=== PATIENT | female | born 1960 | race Caucasian/White ===

== ENCOUNTER → 2019-10-10 17:45 | Outpatient (CLI) | payer BC, SELFPAY ==
--- NOTE | ~2019-10-10 | MM_ITS ---
EXAMINATION: MM screening [facility] BI w stephan HISTORY: Screening mammogram TECHNIQUE: Craniocaudal and mediolateral oblique 3-D tomosynthesis images were obtained and synthetic 2-D images were generated. CAD analysis was submitted and interpreted. COMPARISON: 07/26/2018, 04/25/2017, 02/07/2016 bilateral digital screening mammogram examinations BREAST PARENCHYMAL COMPOSITION: There are scattered areas of fibroglandular density. FINDINGS: There are right breast mammographic asymmetries including: There is a new approximately 8.4 mm partially circumscribed opacity in the posterior outer right [address]. Possible new 5 mm opacity in the outer right breast at mid depth on craniocaudal projection; this is likely composite shadowing based upon the appearance on craniocaudal Tomosynthesis images.. There is a circumscribed 5 mm opacity at mid depth in the outer left breast (craniocaudal Tomosynthes is image 24/70) Otherwise there is no evidence of suspicious mass, calcification, or architectural distortion to sugg est malignancy in either breast. There has been no suspicious interval change. IMPRESSION: 1. Bilateral mammographic masses 2. Diagnostic bilateral mammogram and breast ultrasound examination are recommended. BI-RADS Category 0: Incomplete: Needs additional imaging evaluation. Reviewed, dictated and finalized at location A. SORTER IMPRESSION: 1. Bilateral mammographic masses 2. Diagnostic bilateral mammogram and breast ultrasound examination are recomme nded. BI-RADS Category 0: Incomplete: Needs additional imaging evaluation.
== END ==
PROVIDERS: PCP Family Medicine; Visit Provider Obstetrics & Gynecology Gynecology
DX: Z12.31 Encounter for screening mammogram for malignant neoplasm of breast (principal); R92.8 Other abnormal and inconclusive findings on diagnostic imaging of breast
CPT/HCPCS: 77063; 77067

== ENCOUNTER 2019-10-18 20:10 | Emergency (ER) | payer BC, SELFPAY ==
--- NOTE | ~2019-10-18 | XR_ITS ---
EXAMINATION: XR chest 2V 10/18/2019 20:47 INDICATION: Midsternal chest pain. History of lung cancer. PROCEDURE: PA and lateral views of the chest COMPARISON: Comparison to multiple prior studies sequentially, with oldest reviewed study dated 12/17. FINDINGS: The lungs are clear. There is evidence for chronic granulomatous disease. Chronic elevation of the right diaphragm. Mild dextroscoliosis of the thoracic spine. The cardiomediastinal silhouette is within normal limits. There are no pleural effusions. There is no pneumothorax suspected. IMPRESSION: 1: NO ACUTE CARDIOPULMONARY DISEASE. Reviewed, dictated and finalized at location A. OLATE MOLDER
[2019-10-18 20:19] VITALS: BP 147/56; PULSE 72; RESP 16; TEMP 36.5; O2SAT 100
--- NOTE | 2019-10-18 20:22 | ECG_ITS ---
Measurements Intervals [place] Rate: 69 P: 47 WY: 161 QRS: 4 QRSD: 88 T: 12 QT: 386 QTc: 414 Interpretive Statements SINUS RHYTHM DELAYED PRECORDIAL R/S TRANSITION BORDERLINE T WAVE ABNORMALITY- INFERIOR LEADS BASELINE ARTIFACT- I, II, AVR BORDERLINE ECG Electronically Signed On 10-19-2019 7:06:00 MEDICAL CASE MANAGER by Derek Frost D.O.
[2019-10-18 20:37] LABS: Basophils Absolute Auto 0.1 K/mm3 (0.0-0.1); Basophils Percent Auto 0.6 % (0.2-1.2); Eosinophils Absolute Auto 0.1 K/mm3 (0-0.3); Eosinophils Percent Auto 1.1 % (0-4.4); Hematocrit 45.3 % (37.0-47.0); Hemoglobin 14.3 g/dL (12.0-15.0); Immature Granulocyte Absolute 0.03 K/mm3 (0.00-0.031); Immature Granulocyte Percent A 0.4 % (0-0.5); Lymphocytes Absolute Auto 3.25 K/mm3 (0.9-3.2); Lymphocytes Percent Auto 39.7 % (18.3-44.2); Mean Corpuscular HGB Conc 31.6 g/dl (32-36); Mean Corpuscular Volume 91.9 fl (80-100); Mean Platelet Volume 10.6 fl (7.4-10.4); Monocytes Absolute Auto 0.6 K/mm3 (0.1-0.6); Monocytes Percent Auto 7.5 % (2.6-8.5); Neutrophils Absolute Auto 4.2 K/mm3 (1.3-6.7); Neutrophils Percent Auto 50.7 % (45.5-73.1); Platelet Count Result 227 k/mm3 (150-375); Red Blood Count 4.93 M/mm3 (4.2-5.4); Red Cell Distribution Width 13.2 % (11.5-14.5); White Blood Count 8.2 K/mm3 (4.5-10.0)
[2019-10-18 20:46] LABS: Prothrombin Time 12.6 Seconds (11.1-14.7)
[2019-10-18 20:47] LABS: Partial Thromboplastin Time 29.5 SECONDS (22.3-36.8)
[2019-10-18 20:48] LABS: Blood Urea Nitrogen 24 mg/dL (7-17); Calcium 9.5 mg/dL (8.4-10.2); Carbon Dioxide 31 mmol/L (22-30); Chloride 98 mmol/L (98-107); Estimated CRCL calculation 101 ml/min; Estimated Glomerular Filt Rate > 60; Glucose 111 mg/dL (65-105); Potassium 3.7 mmol/L (3.4-5.0); Sodium 138 mmol/L (137-145)
[2019-10-18] MEDS: ASPIRIN 81 MG CHEWABLE TABLET 324 MG PO (20:55)
--- NOTE | 2019-10-18 20:58 | ED.CHESTPAIN ---
HPI - Chest Pain General Chief Complaint: Chest Pain Stated Complaint: chest pain, dizzy Time Seen by Provider: 10/18/19 20:45 Source: patient Mode of arrival: ambulatory Limitations: no limitations History of Present Illness HPI narrative: The pt is a 59 y/o female who presents to the ED c/o nonradiating midsternal CP onset 2015 today. Pt states that she was getting her hair done, sitting at rest, when she began to experience a pain that she describes as a pressure. She states that at its worst, the pain was a 7/10, but improved after 10 minutes with movement and eventually resolved. Pt states that at that time, she was also experiencing diaphoresis, lightheadedness, and dizziness, but these are resolved. Pt notes that she has a PMHx of lung CA, and had a lobectomy performed. She states that her father has a previous history of UT, but notes that no one else has. Pt states that she has a PMHx of GERD, and states that her last food intake was 1630 when she ate some yogurt. MD complaint: chest pain Onset (ago): minute(s) (30) Timing of current episode: now resolved Onset: during rest Pain location: other (Midsternal) Pain radiation: none Quality: other (Pressure) Relieving factors: movement Associated symptoms: diaphoresis (Resolved) and other (Dizziness (Resolved), Lightheadedness (Resolved)) Related Data Home Medications Medication Instructions Recorded Confirmed cholecalciferol (vitamin D3) 25 1,000 unit PO DAILY 07/23/19 10/17/19 mcg (1,000 unit) capsule cyanocobalamin (vitamin B-12) 1,000 mcg PO DAILY 07/23/19 10/17/19 1,000 mcg capsule loratadine 10 mg tablet 10 mg PO DAILY 07/23/19 10/17/19 Allergies Allergy/AdvReac Type Severity Reaction Status Date / Time adhesive Allergy Unknown Verified 10/07/16 16:47 benzoyl peroxide Allergy Unknown Verified 11/14/17 11:10 latex Allergy Unknown Unknown Verified 11/14/17 11:08 oxycodone Allergy Unknown Verified 02/27/18 22:53 PLASTIC BANDS Allergy Mild BLISTERS Uncoded 04/05/14 07:23 Review of Systems Review of Systems: All systems reviewed & are unremarkable except as noted in HPI and below Constitutional: Constitutional: Reports excessive sweating (Resolved) Cardiovascular: Cardiovascular: Reports chest pain (Midsternal, pressure, Resolved) Neurologic: Reports dizziness (Resolved) and Reports other (Lightheadedness (Resolved)) PENDING SALE TO [facility] Past Medical History Medical History (Updated 10/19/19 @ 00:13 by Rudi aClixto MD) Allergic rhinitis Anemia Anxiety Arthritis Dysfunctional uterine bleeding GERD (gastroesophageal reflux disease) History of lung cancer HLD (hyperlipidemia) IFG (impaired fasting glucose) Osteopenia Right knee injury UTI (urinary tract infection) Vitamin D deficiency Surgical History Surgical History (Updated 10/18/19 @ 21:06 by Beltran Gaspar) H/O dilation and curettage H/O eye surgery x2 H/O tubal ligation H/O: hysterectomy Hx of tonsillectomy Status post lobectomy of lung Family History Family History (Updated 11/14/17 @ 11:03 by DOCTOR UNKNOWN) Mother Hypertension Father Family history of coronary artery disease Family history of malignant neoplasm Social History Social History Smoking status: Never smoker Alcohol intake: never Gender identity (if verbalized by the patient): Female Comments PCP: Dr. Esposito Exam Narrative: Exam Narrative: General appearance: Well-developed, well-nourished Skin: Normal color Head: Normocephalic, nontraumatic Eyes: Clear conjunctiva ENT: Oropharynx normal, ears normal, nose normal Neck: Supple, nontender Chest and respiratory: Airway patent, no respiratory distress, no accessory muscle use Heart: Regular rate/rhythm Abdomen: Soft, nontender, no organomegaly, quiet bowel sounds Vascular: Normal peripheral pulses, normal capillary refill. Musculoskeletal: Normal range of motion, nontender back Neurologic: Alert an
[2019-10-18 21:00] VITALS: BP 156/93; PULSE 74; RESP 20; O2SAT 100
[2019-10-18 21:00] LABS: Troponin I < 0.012 ng/mL (0.000-0.034)
[2019-10-18 22:51] VITALS: BP 157/78; PULSE 72; RESP 20; O2SAT 99
[2019-10-18 23:51] LABS: Troponin I < 0.012 ng/mL (0.000-0.034)
== END 2019-10-19 00:24 | disposition home or self-care (01) ==
PROVIDERS: Emergency Medicine; Emergency Provider Emergency Medicine; PCP Family Medicine
DX: R07.89 Other chest pain (principal); K21.9 Gastro-esophageal reflux disease without esophagitis; Z85.118 Personal history of other malignant neoplasm of bronchus and lung; Z90.2 Acquired absence of lung [part of]; M19.90 Unspecified osteoarthritis, unspecified site; E78.5 Hyperlipidemia, unspecified; M85.80 Other specified disorders of bone density and structure, unspecified site; Z87.440 Personal history of urinary (tract) infections; E55.9 Vitamin D deficiency, unspecified; R94.31 Abnormal electrocardiogram [ECG] [EKG]; Z86.2 Personal history of diseases of the blood and blood-forming organs and certain disorders involving the immune mechanism
CPT/HCPCS: 36415; 71046; 80048; 84484; 85025; 85610; 85730; 93005; 99284; A9270

== ENCOUNTER → 2019-10-30 09:06 | Outpatient (CLI) | payer BC, SELFPAY ==
--- NOTE | ~2019-10-30 | MMUS_ITS ---
EXAMINATION: MM diagnostic mammo BI, US breast BI complete HISTORY: Bilateral mammographic masses reported on 10/10/2019 bilateral digital screening mammogram ex amination TECHNIQUE: Additional 3-D tomosynthesis images of both breasts were performed and synthetic 2-D image s were generated. CAD analysis was submitted and interpreted. Complete bilateral breast ultrasound ex amination was performed. COMPARISON: None FINDINGS: BILATERAL DIAGNOSTIC MAMMOGRAM: There is a 7 mm circumscribed rounded mass with halo sign situated po steriorly in the upper outer quadrant of the right breast. The mammographic features suggest benign c yst. An approximately 5 x 6 mm circumscribed density is noted in the left outer mid breast. The mammograph ic features suggest benign process. Additional masses may be obscured by the fibroglandular tissues in each breast. Bilateral complete br east ultrasound examination was performed. BILATERAL COMPLETE BREAST ULTRASOUND: Right breast: 9:00 5 cm from nipple: 2 contiguous cysts measuring 2.7 x 3.8 mm and 2.1 x 1.8 mm. 9:00 6 cm from nipple: 2.8 x 2 x 3.3 mm simple cyst with through transmission and posterior enhanceme nt 10:00 7 cm from nipple: 10 x 7 x 9 mm simple cyst with through transmission and posterior enhancement Left breast: 12:00 5 cm from nipple: 2.2 x 1.7 x 3.1 mm cyst 12:00 4 cm from nipple: 3 x 2.6 x 4 mm circumscribed hypoechoic lesion without suspicious shadowing 12:00 4 cm from nipple: Irregular hypoechoic approximately 3 x 5.7 mm mass with internal vascularity. This lesion is suspicious. Ultrasound-guided biopsy is recommended. 11:00 3 cm from nipple: 2.6 x 4.4 x 3.4 mm sonolucency, likely a small cyst IMPRESSION: 1. Suspicious irregular hypoechoic sonographic 3 x 5.7 mm mass of left breast at 12:00 4 cm from nipp le, with internal vascularity 2. Ultrasound-guided biopsy of left breast 12:00 mass is recommended. BI-RADS category 4, suspicious findings. Dr. Ramírez telephoned the report and ultrasound-guided biopsy recommended of left breast 12:00 lesion o n 10/30/2019 at 1110 hours to Nurse Taniya. Reviewed, dictated and finalized at location A. [facility] IMPRESSION: 1. Suspicious irregular hypoechoic sonographic 3 x 5.7 mm mass of left breast a t 12:00 4 cm from nipple, with internal vascularity 2. Ultrasound-guided biopsy of left breast 12:00 mass is recommended. BI-RADS category 4, suspicious findings. Dr. Ramírez telephoned the report and ultrasound-guided biopsy recommended of left breast 12:00 lesion on 10/30/2019 at 1110 hours to Nurse Taniya.
== END ==
PROVIDERS: PCP Family Medicine; Visit Provider Nurse Practitioner
DX: R92.8 Other abnormal and inconclusive findings on diagnostic imaging of breast (principal)
CPT/HCPCS: 76641; 77066

== ENCOUNTER 2020-09-12 00:30 | Outpatient (CLI) | payer BC, SELFPAY ==
[2020-09-12 18:46] LABS: SARS-CoV-2 RNA PCR Negative
== END 2020-09-12 00:31 | disposition home or self-care (01) ==
LOC: ANHCOVIDDT 00:30
PROVIDERS: PCP Family Medicine; Visit Provider Internal Medicine Gastroenterology
DX: Z01.812 Encounter for preprocedural laboratory examination (principal); Z20.822 Contact with and (suspected) exposure to COVID-19
CPT/HCPCS: C9803; U0003; U0005

== ENCOUNTER 2020-09-15 02:41 | Day surgery (SDC) | payer BC, SELFPAY ==
[2020-09-04 15:45] VITALS: BMI 29.0
[2020-09-15 07:04] VITALS: BP 135/70; PULSE 77; RESP 16; TEMP 36.9; O2SAT 100
[2020-09-15] MEDS: LACTATED RINGERS 1,000 ML 150 ML IV CONT (07:21)
--- NOTE | 2020-09-15 07:30 | WPDANESEPPF ---
Anes - Initial Pre Proc Eval Procedure: Operation Date: 09/15/20 08:30 Proposed Procedures p Screening Colonoscopy - Oumar Cruz MD Date/Time: 09/15/20 07:30 Surgeon: Oumar Cruz MD Pre Op Diagnosis: Neoplasm Screening Patient Data Age: 60 Gender: F Height: 5 ft 9 in Weight: 85.3 kg Last Vital Signs Temp 98.4 F 09/15/20 07:04 Pulse 77 09/15/20 07:04 Resp 16 09/15/20 07:04 BP 135/70 09/15/20 07:04 Pulse Ox 100 09/15/20 07:04 Allergies Allergy/AdvReac Type Severity Reaction Status Date / Time adhesive Allergy Unknown Blister Verified 09/15/20 07:03 benzoyl peroxide Allergy Unknown Rash Verified 09/15/20 07:03 latex Allergy Unknown Blister Verified 09/15/20 07:03 oxycodone AdvReac Unknown Nausea and Verified 09/15/20 07:03 Vomiting PLASTIC BANDS Allergy Mild BLISTERS Uncoded 09/15/20 07:03 Home Medications Medication Instructions Recorded Confirmed Type cholecalciferol (vitamin D3) 25 1,000 unit PO DAILY 07/23/19 09/08/20 History mcg (1,000 unit) capsule cyanocobalamin (vitamin B-12) 1,000 mcg PO DAILY 07/23/19 09/08/20 History 1,000 mcg capsule montelukast 10 mg tablet 10 mg PO DAILY #30 tablet 08/26/20 09/08/20 Rx biotin 5 mg PO DAILY 09/04/20 09/08/20 History cetirizine [Zyrtec] 5 mg PO DAILY 09/04/20 09/08/20 History Patient hx anesthesia problems: none Family hx anesthesia problems: none PMFSH Past Medical History Medical History (Updated 09/08/20 @ 16:16 by Bowen Esposito MD) Allergic rhinitis Anemia Anxiety Arthritis Dysfunctional uterine bleeding GERD (gastroesophageal reflux disease) History of lung cancer HLD (hyperlipidemia) HLD (hyperlipidemia) IFG (impaired fasting glucose) IFG (impaired fasting glucose) Osteopenia Right knee injury UTI (urinary tract infection) Vitamin D deficiency Surgical History Surgical History (Updated 10/18/19 @ 21:06 by Beltran Gaspar) H/O dilation and curettage H/O eye surgery x2 H/O tubal ligation H/O: hysterectomy Hx of tonsillectomy Status post lobectomy of lung Family History Family History (Updated 11/14/17 @ 11:03 by DOCTOR UNKNOWN) Mother Hypertension Father Family history of coronary artery disease Family history of malignant neoplasm Social History Social History (Updated 09/08/20 @ 15:58 by Di Martinez) Smoking status: Never smoker Alcohol intake: never Substance use: never Substance use type: does not use Living arrangements: with family Gender identity (if verbalized by the patient): Female Spiritual care concerns: No Anes - Eval Final PreProcedure Day of Procedure 09/15/20 07:30 Patient weight: overweight Heart: regular rate and rhythm Lungs: clear to auscultation Airway: Mallampati scale class II Neurological: alert and oriented Last oral intake: >/= 8 hours ASA classification: III Emergent: no Anesthetic plan: proceed Anesthesia type and monitoring: general GIVS and standard monitoring Informed Consent: The patient's anesthetic plan and its attendant risks and benefits were discussed with the patient/family/POA. Questions were solicited and answers provided to the satisfaction of the patient/family/POA.
--- NOTE | 2020-09-15 07:59 | PM.HPGS ---
History of Present Illness History of Present Illness Consent: Risks, benefits, and alternatives have been discussed and questions answered. Patient agrees to proceed with procedure. Chief complaint: Neoplasm Screening Narrative: Marjan Khan is a 60 year old female here for screening colonoscopy, last one ~ 10 years ago. Review of Systems Constitutional: Constitutional: Denies headache(s) and Denies weakness Eyes: Eyes: Denies blurry vision ENT: Reports Normal hearing present, Denies headache(s) and Denies neck pain Cardiovascular: Cardiovascular: Denies chest pain and Denies dyspnea Respiratory: Respiratory: Denies dyspnea Gastrointestinal: Gastrointestinal: Reports no additional gastrointestinal complaints Genitourinary: Genitourinary: Denies dysuria Musculoskeletal: Musculoskeletal: Denies neck pain Integumentary/Breasts: Skin/Breast: Denies dry skin Neurologic: Reports Normal hearing present, Denies headache(s) and Denies weakness Psychiatric: Psychiatric: Denies anxiety Endocrine: Endocrine: Denies change in body appearance Hematologic/Lymphatic: Hematologic/Lymphatic: Denies easy bleeding Allergic/Immunologic: Allergic/Immunologic: Denies urticaria PMFSH Past Medical History Medical History (Updated 09/15/20 @ 07:59 by Oumar Cruz MD) Allergic rhinitis Anemia Anxiety Arthritis Colon cancer screening Dysfunctional uterine bleeding GERD (gastroesophageal reflux disease) History of lung cancer HLD (hyperlipidemia) HLD (hyperlipidemia) IFG (impaired fasting glucose) IFG (impaired fasting glucose) Osteopenia Right knee injury UTI (urinary tract infection) Vitamin D deficiency Surgical History Surgical History (Updated 10/18/19 @ 21:06 by Beltran Gaspar) H/O dilation and curettage H/O eye surgery x2 H/O tubal ligation H/O: hysterectomy Hx of tonsillectomy Status post lobectomy of lung Family History Family History (Updated 11/14/17 @ 11:03 by DOCTOR UNKNOWN) Mother Hypertension Father Family history of coronary artery disease Family history of malignant neoplasm Social History Social History (Updated 09/08/20 @ 15:58 by Di Martinez) Smoking status: Never smoker Alcohol intake: never Substance use: never Substance use type: does not use Living arrangements: with family Gender identity (if verbalized by the patient): Female Spiritual care concerns: No Meds Home Medications and Allergies Home Medications Medication Instructions Recorded Confirmed Type cholecalciferol (vitamin D3) 25 1,000 unit PO DAILY 07/23/19 09/08/20 History mcg (1,000 unit) capsule cyanocobalamin (vitamin B-12) 1,000 mcg PO DAILY 07/23/19 09/08/20 History 1,000 mcg capsule montelukast 10 mg tablet 10 mg PO DAILY #30 tablet 08/26/20 09/08/20 Rx biotin 5 mg PO DAILY 09/04/20 09/08/20 History cetirizine [Zyrtec] 5 mg PO DAILY 09/04/20 09/08/20 History Allergies Allergy/AdvReac Type Severity Reaction Status Date / Time adhesive Allergy Unknown Blister Verified 09/15/20 07:03 benzoyl peroxide Allergy Unknown Rash Verified 09/15/20 07:03 latex Allergy Unknown Blister Verified 09/15/20 07:03 oxycodone AdvReac Unknown Nausea and Verified 09/15/20 07:03 Vomiting PLASTIC BANDS Allergy Mild BLISTERS Uncoded 09/15/20 07:03 Vital Signs Vital Signs - 24 hr 09/15/20 07:04 Temperature 98.4 F Pulse Rate 77 Respiratory Rate 16 Blood Pressure 135/70 Pulse Oximetry 100 Exam Const: General: comfortable and no acute distress HENMT: General nose exam: Normal nares present Eyes: General: appearance normal, both eyes and all related structures Neck: Neck: no JVD Resp: Auscultation: clear to auscultation bilaterally Cardio: Rate: regular rate Rhythm: regular rhythm GI: Inspection: non-distended GI Palp: Yes Soft to palpation Skin: General skin exam: normal color Neuro: General: gait normal Speech: normal speech Ex
[2020-09-15 08:26] VITALS: BP 105/63; PULSE 73; RESP 21; O2SAT 100
[2020-09-15 08:36] VITALS: BP 127/78; PULSE 67; RESP 19; O2SAT 100
[2020-09-15 08:46] VITALS: BP 123/74; PULSE 61; RESP 21; O2SAT 100
== END 2020-09-15 09:06 | disposition home or self-care (01) ==
PROVIDERS: PCP Family Medicine; Visit Provider Internal Medicine Gastroenterology
PROC: 0DJD8ZZ Inspection of Lower Intestinal Tract, Via Natural or Artificial Opening Endoscopic (ICD-10-PCS; CPT 45378; principal; 2020-09-15 08:30)
DX: Z12.11 Encounter for screening for malignant neoplasm of colon (principal); K64.8 Other hemorrhoids; D64.9 Anemia, unspecified; F41.9 Anxiety disorder, unspecified; M19.90 Unspecified osteoarthritis, unspecified site; K21.9 Gastro-esophageal reflux disease without esophagitis; E78.5 Hyperlipidemia, unspecified; R73.01 Impaired fasting glucose; E55.9 Vitamin D deficiency, unspecified
CPT/HCPCS: 45378; J2704; J7120

== ENCOUNTER → 2021-02-27 09:22 | Outpatient (CLI) | payer BC, SELFPAY ==
--- NOTE | ~2021-02-27 | CT_ITS ---
EXAMINATION: CT brain wo con DATE: 02/27/2021 09:41 INDICATION: Dizziness and giddiness. Headache. Vertigo. TECHNIQUE: Computed tomography (CT) of the head was performed without intravenous contrast. The mA wa s adjusted according to patient size. Iterative reconstruction technique was employed. The dose-lengt h product was 599.57 mGy-cm. COMPARISON: None FINDINGS: There is no intracranial hemorrhage, acute infarction, or abnormal intracranial mass lesion . The ventricles are normal in size. The orbits are normal. The paranasal sinuses are clear. The mast oid air cells are normal. IMPRESSION: 1. Normal brain. Reviewed, dictated and finalized at location A. IMPRESSION: 1. Normal brain.
== END ==
PROVIDERS: PCP Family Medicine; Visit Provider Family Medicine
DX: R42 Dizziness and giddiness (principal)
CPT/HCPCS: 70450

== ENCOUNTER → 2021-02-27 09:35 | Outpatient (CLI) | payer BC, SELFPAY ==
--- NOTE | ~2021-02-27 | DEXA_ITS ---
Bone Density Report Name: Marjan Khan Age: 60 Sex: Female Ethnicity: White Date of : 1960 Indication: osteopenia; parental hip fracture; hysterectomy; postmenopausal Referring Provider: Alethea, Savanah Study: Bone densitometry was performed. Exam Date: February 27, 2021 Accession number: [id number] Bone Density: Region BMD T-score Z-score Classification AP Spine (L1-L4) 0.940 -1.0 0.6 Normal Femoral Neck (Left) 0.610 -2.2 -0.8 Osteopenia Total Hip (Left) 0.758 -1.5 -0.5 Osteopenia Femoral Neck (Right) 0.620 -2.1 -0.7 Osteopenia Total Hip (Right) 0.777 -1.4 -0.3 Osteopenia Total Hip Mean 0.768 -1.5 -0.4 Osteopenia World Health Organization criteria for BMD impression classify patients as: Normal (T-score at or above -1.0), Osteopenia (T-score between -1.0 and -2.5), or Osteoporosis (T-score at or below -2.5). 10-year Fracture Risk(1): Major Osteoporotic Fracture 19% Hip Fracture 1.5% Reported Risk Factors: [place] (), Neck BMD=0.610, BMI=28.1, parental fracture (1) FRAX(R) Version 3.08. Fracture probability calculated for an untreated patient. Fracture probability may be lower if the patient has received treatment. Previous Exams: Region Exam Age BMD T-score BMD Change BMD Change Date g/cm2 vs Baseline vs Previous AP Spine(L1-L4) 02/27/2021 60 0.940 -1.0 -0.008 0.020 08/23/2018 58 0.920 -1.2 -0.028* -0.013 07/17/2016 55 0.934 -1.0 -0.015 -0.007 07/13/2014 53 0.941 -1.0 -0.008 -0.038* 06/10/2012 51 0.979 -0.6 0.030* 0.003 11/12/2010 50 0.976 -0.6 0.027* 0.027* 10/13/2009 49 0.949 -0.9 Total Hip(Left) 02/27/2021 60 0.758 -1.5 -0.026 0.002 08/23/2018 58 0.756 -1.5 -0.028* -0.034* 07/17/2016 55 0.790 -1.2 0.006 0.004 07/13/2014 53 0.787 -1.3 0.002 -0.016 06/10/2012 51 0.802 -1.1 0.018 0.018 11/12/2010 50 0.784 -1.3 Total Hip(Right) 02/27/2021 60 0.777 -1.4 -0.025 -0.004 08/23/2018 58 0.780 -1.3 -0.021 0.009 07/17/2016 55 0.771 -1.4 -0.030* -0.005 07/13/2014 53 0.776 -1.4 -0.026 -0.007 06/10/2012 51 0.783 -1.3 -0.018 -0.018 11/12/2010 50 0.801 -1.2 *Denotes significance at 95% confidence level, LSC for AP Spine = 0.022 g/cm2, LSC for Total Hip = 0.027 g/cm2
== END ==
PROVIDERS: Visit Provider Nurse Practitioner
DX: Z78.0 Asymptomatic menopausal state (principal); M85.851 Other specified disorders of bone density and structure, right thigh; M85.852 Other specified disorders of bone density and structure, left thigh
CPT/HCPCS: 77080

== ENCOUNTER → 2021-04-01 15:51 | Outpatient (CLI) | payer BC, SELFPAY ==
--- NOTE | ~2021-04-01 | XR_ITS ---
XR chest 2V DATE: 04/01/2021 16:02 INDICATION: Cough. No fever. TECHNIQUE: 2 views COMPARISON: October 18, 2019 PA and lateral chest January 26, 2013 two-view chest FINDINGS: There is chronic mild elevation of right leaf of diaphragm and chronic blunting of the righ t costophrenic angle, stable since 10/18/2019 and 01/26/2013. There is evidence of old pulmonary granulomatous disease. No active infiltrate or consolidation, pleural effusion or pulmonary vascular congestion or pneumotho rax. Normal heart size. Diffuse osteopenia. IMPRESSION: No active disease or significant change since 10/18/2019 Reviewed, dictated and finalized at location B.
== END ==
PROVIDERS: PCP Family Medicine; Visit Provider Physician Assistant
DX: R05 Cough (principal)
CPT/HCPCS: 71046

== ENCOUNTER → 2022-04-12 17:03 | Outpatient (CLI) | payer BC, SELFPAY ==
--- NOTE | ~2022-04-12 | XR_ITS ---
EXAMINATION: XR chest 2V DATE: 04/12/2022 18:32 INDICATION: Personal history of lung cancer. Left shoulder and lateral neck swelling for one week. Co ugh. TECHNIQUE: Frontal and lateral views of the chest were obtained. COMPARISON: chest 2 views 04/01/2021, chest CT 07/26/2012 FINDINGS: There is volume loss of right hemithorax, likely from right lower lobectomy. A calcified le ft lung nodule is consistent with old granulomatous disease. No pneumonia, pleural effusion, or pneum othorax. The heart size is normal. IMPRESSION: 1. No acute cardiopulmonary disease. Reviewed, dictated and finalized at location A.
== END ==
PROVIDERS: PCP Family Medicine; Visit Provider Nurse Practitioner Family
DX: M79.89 Other specified soft tissue disorders (principal); Z85.118 Personal history of other malignant neoplasm of bronchus and lung
CPT/HCPCS: 71046

== ENCOUNTER 2022-04-13 12:19 | Outpatient (CLI) | payer BC, SELFPAY ==
--- NOTE | ~2022-04-13 | US_ITS ---
EXAMINATION: US soft tissue head and neck DATE: 04/13/2022 12:52 INDICATION: Other specified soft tissue disorders with nontender palpable abnormality at the left kervin e of the neck. TECHNIQUE: Multiple grayscale and Doppler ultrasound images of the region of concern at the inferior left neck and supraclavicular region were obtained. COMPARISON: None FINDINGS: There are few scattered normal-sized lymph nodes at the left neck and supraclavicular region, the lar gest measuring 3 mm maximal short axis diameter. No pathologically enlarged lymphadenopathy or other abnormal masses or fluid collections identified in the 3 regions of concern as indicated by the patie nt. IMPRESSION: 1. No correlate identified for the palpable abnormalities of concern with no pathologically enlarged lymphadenopathy or other abnormal masses or fluid collections identified at the region of concern at the inferior left neck and left supraclavicular region. Reviewed, dictated and finalized at location A. IMPRESSION: 1. No correlate identified for the palpable abnormalities of concern with no pa thologically enlarged lymphadenopathy or other abnormal masses or fluid collect ions identified at the region of concern at the inferior left neck and left sup raclavicular region.
== END 2022-04-13 12:20 | disposition home or self-care (01) ==
LOC: CHSIMG 12:22
PROVIDERS: PCP Family Medicine; Visit Provider Nurse Practitioner Family
DX: M79.89 Other specified soft tissue disorders (principal)
CPT/HCPCS: 76536

== ENCOUNTER 2022-07-10 21:42 | Emergency (ER) | payer BC, SELFPAY ==
--- NOTE | ~2022-07-10 | CT_ITS ---
EXAMINATION: CT abdomen pelvis wo con DATE: 07/10/2022 23:59 INDICATION: Right lower quadrant and right flank pain, hematuria TECHNIQUE: Computed tomography (CT) of the abdomen and pelvis was performed without intravenous contr ast. The dose-length product (DLP) was 841.34 mGy-cm. Automated exposure control and iterative recons truction technique were employed. COMPARISON: 08/15/2012 FINDINGS: Minimal dependent atelectasis is present in the lung bases. The heart size is normal. There is a small sliding hiatal hernia. Punctate calcifications in an otherwise normal spleen likely repre sent healed granulomatous disease. Stones are present in the nondistended gallbladder. The liver, damon creas, and adrenal glands are normal. There is a 6 mm stone at the right ureteropelvic junction causi ng mild hydronephrosis. There is a 2 mm nonobstructing stone of the right kidney. There is a 3 mm non obstructing stone of the left kidney. No pathologically enlarged abdominal or pelvic lymph nodes are identified. There is moderate lumbar spondylosis at L5-S1. There is no free intraperitoneal gas or ev idence of bowel obstruction. A fat-containing umbilical hernia is noted. There is osteitis pubis. IMPRESSION: 1. 6 mm stone at the right ureteropelvic junction causing mild hydronephrosis. 2. Nonobstructing bilateral nephrolithiasis. Reviewed, dictated and finalized at location A. [employer]
[2022-07-10 21:43] VITALS: BP 128/52; PULSE 74; RESP 18; TEMP 36.6; O2SAT 100
[2022-07-10 22:22] LABS: Add Urine Microscopic? YES; Appearance Urine Clear (Clear); Bilirubin Urine 1+ (Negative); Blood Urine 3+ (Negative); Color Urine Brown (Yellow); Glucose Urine UA Negative (Negative); Ketones Urine 4+ mg/dL (Negative); Leukocyte Esterase Ur 1+ LEU/UL (Negative); Nitrate Urine Negative (Negative); Protein Urine 2+ mg/dL (Negative)
[2022-07-10 22:26] LABS: Mucus Urine Rare /lpf; RBC Urine >75 /hpf (0-2); Squamous Epithelial Cell Urine Rare /hpf (Few); WBC Urine 0-3 /hpf
--- NOTE | 2022-07-10 23:13 | ED.ABDPAIN ---
HPI - Abdominal Pain General Chief Complaint: Abdominal Pain Stated Complaint: urinary pain Time Seen by Provider: 07/10/22 22:36 History of Present Illness HPI narrative: 61-year-old female with history of lung cancer and right lobectomy presented to the emergency department for evaluation of right flank pain and hematuria. Patient reports her symptoms started on Tuesday and have persisted. Patient is currently pain that radiates to her right lower quadrant. Patient states that burning with urination. Patient denies any prior history of kidney stones. Related Data Home Medications Medication Instructions Recorded Confirmed cholecalciferol (vitamin D3) 25 1,000 unit PO DAILY 07/23/19 09/14/21 mcg (1,000 unit) capsule cyanocobalamin (vitamin B-12) 1,000 mcg PO DAILY 07/23/19 09/14/21 1,000 mcg capsule biotin 5 mg capsule 5 mg PO DAILY 09/04/20 09/14/21 cetirizine 5 mg tablet 5 mg PO DAILY 09/04/20 09/14/21 Allergies Allergy/AdvReac Type Severity Reaction Status Date / Time adhesive Allergy Unknown Blister Verified 07/11/22 02:09 benzoyl peroxide Allergy Unknown Rash Verified 07/11/22 02:09 latex Allergy Unknown Blister Verified 07/11/22 02:09 oxycodone AdvReac Unknown Nausea and Verified 07/11/22 02:09 Vomiting PLASTIC BANDS Allergy Mild BLISTERS Uncoded 03/15/22 13:06 Review of Systems Review of Systems: CONSTITUTIONAL: Denies fever, chills, or sweats. EYES: Denies visual changes, redness, or discharge. ENT: Denies rhinorrhea, congestion, sore throat, or otalgia. CARDIOVASCULAR: Denies chest pain, palpitations, or edema. RESPIRATORY: Denies cough or dyspnea. GASTROINTESTINAL: See HPI GENITOURINARY: See HPI SKIN: Denies rash or itching. MUSCULOSKELETAL: Denies back pain, joint pain, or myalgia. NEUROLOGIC: Denies headache, numbness, or weakness. [facility] Past Medical History Medical History Allergic rhinitis Anemia Anxiety Arthritis Colon cancer screening Dysfunctional uterine bleeding GERD (gastroesophageal reflux disease) History of lung cancer HLD (hyperlipidemia) HLD (hyperlipidemia) IFG (impaired fasting glucose) IFG (impaired fasting glucose) Osteopenia Right knee injury UTI (urinary tract infection) Vitamin D deficiency Surgical History Surgical History H/O dilation and curettage H/O eye surgery x2 H/O tubal ligation H/O: hysterectomy Hx of tonsillectomy Status post lobectomy of lung Family History Family History Mother Hypertension Father Family history of coronary artery disease Family history of malignant neoplasm Social History Social History Smoking status: Never smoker Second hand tobacco smoke exposure: No Alcohol intake: never Substance use: never Substance use type: does not use Gender identity (if verbalized by the patient): Female Sexual Orientation (if Verbalized by the Patient): Straight or Heterosexual Spiritual care concerns: No Exam Narrative: APPEARANCE: Well appearing, no pain, no distress, well-nourished. HEAD: normocephalic, atraumatic. EYES: PERRLA/EOMI, conjunctivae clear. NOSE: Normal no drainage NECK: Supple. No adenopathy, no masses. RESPIRATORY: Airway patent, respirations nonlabored. Clear to auscultation bilaterally, no rales, rhonchi, wheezing. CARDIOVASCULAR: Regular rate and rhythm without murmurs rubs or gallops. ABDOMINAL: Right lower quadrant tenderness to palpation. Right CVA tenderness. MUSCULOSKELETAL: Moves all extremities. Strength/ROM intact, No edema, No calf tenderness. NEURO: Alert. Cranial nerves II through XII intact. Grossly intact SKIN: Warm, dry. Normal Color Course Course Emergency Course: Patient CT scan showed that she does have a ureteral calculi at the right UPJ. P
[2022-07-10] MEDS: ONDANSETRON INJ 4 MG/2 ML VIAL IV PUSH (23:22)
[2022-07-10] MEDS: HYDROmorphone HCL INJ (*CRX) 1 MG/ML SYR 0.5 MG IV PUSH (23:26)
[2022-07-10] MEDS: SODIUM CHLORIDE 0.9% IV 1,000 ML 999 ML IV CONT (23:29)
[2022-07-10 23:36] LABS: Basophils Percent Auto 0.2 % (0.2-1.2); Hematocrit 46.2 % (37.0-47.0); Hemoglobin 15.2 g/dL (12.0-15.0); Immature Granulocyte Absolute 0.04 K/mm3 (0.00-0.031); Immature Granulocyte Percent A 0.4 % (0-0.5); Lymphocytes Absolute Auto 0.75 K/mm3 (0.9-3.2); Lymphocytes Percent Auto 6.7 % (18.3-44.2); Mean Corpuscular HGB Conc 32.9 g/dl (32-36); Mean Corpuscular Volume 91.3 fl (80-100); Mean Platelet Volume 10.8 fl (7.4-10.4); Monocytes Absolute Auto 0.3 K/mm3 (0.1-0.6); Monocytes Percent Auto 2.2 % (2.6-8.5); Neutrophils Absolute Auto 10.1 K/mm3 (1.3-6.7); Neutrophils Percent Auto 90.5 % (45.5-73.1); Platelet Count Result 272 k/mm3 (150-375); Red Blood Count 5.06 M/mm3 (4.2-5.4); Red Cell Distribution Width 13.4 % (11.5-14.5); White Blood Count 11.1 K/mm3 (4.5-10.0)
--- NOTE | 2022-07-11 00:32 | PC.NURSE ---
Phlebotomy to come redraw green top d/t reported hemolysis of sample.
[2022-07-11] MEDS: HYDROmorphone HCL INJ (*CRX) 1 MG/ML SYR IV PUSH ×2 (00:36→02:14)
[2022-07-11 00:57] LABS: Alanine Aminotransferase 20 U/L (6-35); Albumin Level 4.3 g/dL (3.5-5.1); Alkaline Phosphatase 116 U/L (38-126); Anion Gap 10 mmol/L (8-16); Aspartate Amino Transferase 22 U/L (14-36); Bilirubin,Total 0.9 mg/dL (0.2-1.3); Blood Urea Nitrogen 25 mg/dL (7-17); Calcium 8.8 mg/dL (8.4-10.2); Carbon Dioxide 25 mmol/L (22-30); Chloride 105 mmol/L (98-107); Estimated Glomerular Filt Rate > 60; Glucose 158 mg/dL (65-110); Potassium 3.8 mmol/L (3.4-5.0); Sodium 140 mmol/L (137-145)
[2022-07-11] MEDS: ONDANSETRON INJ 4 MG/2 ML VIAL IV PUSH (02:10)
[2022-07-11 02:15] VITALS: BP 147/84
[2022-07-11 02:38] VITALS: BP 139/75; PULSE 76; RESP 20; O2SAT 96
== END 2022-07-11 02:50 | disposition home or self-care (01) ==
PROVIDERS: Emergency Provider Emergency Medicine; PCP Family Medicine
DX: N20.0 Calculus of kidney (principal); E78.5 Hyperlipidemia, unspecified; Z85.118 Personal history of other malignant neoplasm of bronchus and lung
CPT/HCPCS: 36415; 74176; 80053; 81001; 85025; 96361; 96365; 96375; 96376; 99284; J0696; J1170; J2405; J7030

== ENCOUNTER 2022-07-13 14:53 | Outpatient (CLI) | payer BC, SELFPAY ==
--- NOTE | ~2022-07-13 | XR_ITS ---
XR abdomen/kub 1V DATE: 07/13/2022 15:24 INDICATION: Right ureteral stone follow-up TECHNIQUE: AP supine views COMPARISON: 07/10/[address] abdomen pelvis FINDINGS: Bilateral kidney stones and proximal right ureteral stone noted on 07/10/2022 KUB are radio graphically occult. Consider repeat noncontrast CT abdomen pelvis examination as needed for follow-up of the right ureteral stone. Bilateral calcified pelvic phleboliths. There is a prominent amount of fecal material in the right colon. There is gaseous distention of the transverse colon, splenic flexure and descending colon. No bowel obstruction is evident. The psoas sh adows appear intact. No visceromegaly is noted. Osteitis pubis. IMPRESSION: Nonspecific abdomen; urinary tract calculi reported in the kidneys and proximal right ure ter on 07/10/2022 CT abdomen pelvis examination appear to be radiographically occult Reviewed, dictated and finalized at Location [facility]. Reviewed, dictated and finalized at location A. D CARE SPECIALIST IMPRESSION: Nonspecific abdomen; urinary tract calculi reported in the kidneys and proximal right ureter on 07/10/2022 CT abdomen pelvis examination appear to be radiographically occult
== END 2022-07-13 14:54 | disposition home or self-care (01) ==
PROVIDERS: PCP Family Medicine; Visit Provider Nurse Practitioner Adult Health
DX: N20.1 Calculus of ureter (principal)
CPT/HCPCS: 74018

== ENCOUNTER 2022-07-14 16:51 | Observation (INO) | payer BC, SELFPAY ==
[2022-07-14] VITALS (10 sets, daily range): BP systolic 133–154; BP diastolic 65–81; PULSE 81–83; RESP 16–18; TEMP 37.2; O2SAT 97–100
--- NOTE | ~2022-07-14 | XR_ITS ---
EXAMINATION: XR stent kub - surgery INDICATION: Cystoscopy and right-sided stent placement TECHNIQUE: Three intraoperative fluoroscopic images are submitted for review. Total fluoroscopic time was 60.3 seconds. COMPARISON: None available FINDINGS: Fluoroscopic images demonstrate placement of a right internal ureteral stent in expected po sition. Please refer to procedure note for full details. IMPRESSION: 1. Please refer to procedure note for full details. Reviewed, dictated and finalized at location [facility]. [employer]
[2022-07-14 20:09] LABS: Basophils Absolute Auto 0.1 K/mm3 (0.0-0.1); Basophils Percent Auto 0.4 % (0.2-1.2); Hematocrit 46.7 % (37.0-47.0); Hemoglobin 15.4 g/dL (12.0-15.0); Immature Granulocyte Absolute 0.04 K/mm3 (0.00-0.031); Immature Granulocyte Percent A 0.3 % (0-0.5); Lymphocytes Absolute Auto 1.03 K/mm3 (0.9-3.2); Lymphocytes Percent Auto 8.5 % (18.3-44.2); Mean Corpuscular Hemoglobin 30.2 pg (26-34); Mean Corpuscular Volume 91.6 fl (80-100); Mean Platelet Volume 10.6 fl (7.4-10.4); Monocytes Absolute Auto 0.9 K/mm3 (0.1-0.6); Monocytes Percent Auto 7.7 % (2.6-8.5); Neutrophils Absolute Auto 10.1 K/mm3 (1.3-6.7); Neutrophils Percent Auto 83.1 % (45.5-73.1); Platelet Count Result 253 k/mm3 (150-375); Red Cell Distribution Width 12.8 % (11.5-14.5); White Blood Count 12.2 K/mm3 (4.5-10.0)
[2022-07-14 20:23] LABS: Alanine Aminotransferase 19 U/L (6-35); Albumin Level 4.4 g/dL (3.5-5.1); Alkaline Phosphatase 130 U/L (38-126); Anion Gap 12 mmol/L (8-16); Aspartate Amino Transferase 23 U/L (14-36); Bilirubin,Total 1.2 mg/dL (0.2-1.3); Blood Urea Nitrogen 18 mg/dL (7-17); Calcium 9.5 mg/dL (8.4-10.2); Carbon Dioxide 29 mmol/L (22-30); Chloride 97 mmol/L (98-107); Estimated CRCL calculation 75 ml/min; Estimated Glomerular Filt Rate > 60; Glucose 125 mg/dL (65-110); Potassium 3.8 mmol/L (3.4-5.0); Sodium 138 mmol/L (137-145)
[2022-07-14 20:30] LABS: Appearance Urine Slightly Cloudy (Clear); Bilirubin Urine 2+ (Negative); Blood Urine 3+ (Negative); Color Urine Yellow (Yellow); Glucose Urine UA Negative (Negative); Ketones Urine 4+ mg/dL (Negative); Leukocyte Esterase Ur Negative LEU/UL (Negative); Nitrate Urine Negative (Negative); Protein Urine 1+ mg/dL (Negative); Specific Grav Ur >= 1.030 (1.001-1.035)
[2022-07-14 20:34] LABS: Mucus Urine Few /lpf; RBC Urine >75 /hpf (0-2); Squamous Epithelial Cell Urine Occasional /hpf (Few)
[2022-07-14 20:37] LABS: Add Urine Microscopic? YES
[2022-07-14] MEDS: HYDROmorphone HCL INJ (*CRX) 1 MG/ML SYR IV PUSH (20:51)
[2022-07-14] MEDS: SODIUM CHLORIDE 0.9% IV 1,000 ML 999 ML IV CONT (20:51)
[2022-07-14] MEDS: ONDANSETRON INJ 4 MG/2 ML VIAL IV PUSH (20:51)
--- NOTE | 2022-07-14 22:25 | ED.GENADULT ---
HPI - General Adult General Chief complaint: Urogenital-Female Stated complaint: kidney stone pain Time Seen by Provider: 07/14/22 20:28 History of Present Illness HPI narrative: Patient is a 59-year-old female who presents the emergency department with chief complaint of right flank pain. Patient reports she was seen in the emergency department on the diagnosed with a right obstructing stone and has seen urology and is scheduled for a stent later this week. Patient reports has been taking Flomax tramadol and Tylenol and today her pain came back was significantly worse. Patient reports has been unable to get comfortable at home has had some nausea and vomiting with it as well. Related Data Home Medications Medication Instructions Recorded Confirmed ciprofloxacin HCl 500 mg tablet 500 mg PO BID 07/14/22 07/14/22 Allergies Allergy/AdvReac Type Severity Reaction Status Date / Time adhesive Allergy Unknown Blister Verified 07/14/22 10:03 benzoyl peroxide Allergy Unknown Rash Verified 07/14/22 10:03 latex Allergy Unknown Blister Verified 07/14/22 10:03 oxycodone AdvReac Unknown Nausea and Verified 07/14/22 10:03 Vomiting PLASTIC BANDS Allergy Mild BLISTERS Uncoded 07/14/22 10:03 Review of Systems Review of Systems: A 10 system review of systems was completed on the patient and is negative except for what is stated in the HPI. Nursing and ancillary documentation was reviewed. [facility] Past Medical History Medical History Allergic rhinitis Anemia Anxiety Arthritis Colon cancer screening Dysfunctional uterine bleeding GERD (gastroesophageal reflux disease) History of lung cancer HLD (hyperlipidemia) HLD (hyperlipidemia) IFG (impaired fasting glucose) IFG (impaired fasting glucose) Osteopenia Right knee injury UTI (urinary tract infection) Vitamin D deficiency Surgical History Surgical History H/O dilation and curettage H/O eye surgery x2 H/O tubal ligation H/O: hysterectomy Hx of tonsillectomy Status post lobectomy of lung Family History Family History Mother Hypertension Father Family history of coronary artery disease Family history of malignant neoplasm Social History Social History Smoking status: Never smoker Second hand tobacco smoke exposure: No Alcohol intake: current Alcohol use details: RARE Substance use: never Substance use type: does not use Gender identity (if verbalized by the patient): Female Sexual Orientation (if Verbalized by the Patient): Straight or Heterosexual Spiritual care concerns: No Exam Narrative: GENERAL: Well-appearing, well-nourished, and in no acute distress. HEAD: Normocephalic, atraumatic. EYES: PERRLA and EOMI. ENT: Nares clear, no rhinorrhea or epistaxis. Mucous membranes moist. NECK: Supple. CHEST: Clear to auscultation. No respiratory distress. HEART: Regular rate and rhythm. No murmur heard. Normal peripheral pulses. ABDOMEN: Soft, nontender, nondistended, normal active bowel sounds. EXTREMITIES: Normal range of motion. No edema. SKIN: Warm, dry, no rash. NEURO: No focal deficits. Alert and oriented x3. PSYCH: Normal mood and affect. Course Vital Signs Vital signs: Vital Signs Temperature 37.2 C 07/14/22 16:53 Pulse Rate 81 07/14/22 16:53 Respiratory Rate 18 07/14/22 16:53 Blood Pressure 145/65 H 07/14/22 16:53 Pulse Oximetry 98 07/14/22 16:53 Oxygen Delivery Room Air 07/14/22 16:53 Temperature 37.2 C 07/14/22 16:53 Pulse Rate 87 07/15/22 00:19 Respiratory Rate 18 07/15/22 00:19 Blood Pressure 120/67 07/15/22 00:19 Pulse Oximetry 98 07/15/22 00:19 Oxygen Delivery Room Air 07/14/22 16:53 Medical Decision Making Vital Sig
[2022-07-14] MEDS: SODIUM CHLORIDE 0.9% IV 1,000 ML 125 ML IV CONT (22:48)
[2022-07-14] MEDS: TAMSULOSIN HCL 0.4 MG CAPSULE PO (22:48)
[2022-07-15] VITALS (11 sets, daily range): BP systolic 120–154; BP diastolic 65–82; PULSE 75–102; RESP 16–18; TEMP 36.4–38; O2SAT 92–100; BMI 28.7; BMI 29.0
--- NOTE | 2022-07-15 01:12 | ADMGEN ---
This patient, Marjan Khan, was admitted to 2 Medical Room 251-01. Patient/family oriented to hospital policies and general routines including ID bracelet, bed and alarms, visiting hours, pain management, procedures, bathroom and other care routines, personal items, smoking policy, room service/diet, and visiting hours. Information on how to activate the Rapid Response Team has been discussed. Patient/Family are encouraged to report perceived risks to care and to ask questions if they do not understand what they are told or what they should do.
[2022-07-15] MEDS: HYDROmorphone HCL INJ (*CRX) 1 MG/ML SYR IV PUSH ×3 (01:43→11:05)
[2022-07-15 06:49] LABS: Basophils Absolute Auto 0.1 K/mm3 (0.0-0.1); Basophils Percent Auto 0.6 % (0.2-1.2); Eosinophils Percent Auto 0.4 % (0-4.4); Hematocrit 40.3 % (37.0-47.0); Hemoglobin 13.1 g/dL (12.0-15.0); Immature Granulocyte Absolute 0.04 K/mm3 (0.00-0.031); Immature Granulocyte Percent A 0.5 % (0-0.5); Lymphocytes Percent Auto 18.9 % (18.3-44.2); Mean Corpuscular HGB Conc 32.5 g/dl (32-36); Mean Corpuscular Hemoglobin 29.4 pg (26-34); Mean Corpuscular Volume 90.6 fl (80-100); Mean Platelet Volume 11.2 fl (7.4-10.4); Monocytes Absolute Auto 0.8 K/mm3 (0.1-0.6); Monocytes Percent Auto 9.8 % (2.6-8.5); Neutrophils Absolute Auto 5.9 K/mm3 (1.3-6.7); Neutrophils Percent Auto 69.8 % (45.5-73.1); Platelet Count Result 199 k/mm3 (150-375); Red Blood Count 4.45 M/mm3 (4.2-5.4); Red Cell Distribution Width 12.9 % (11.5-14.5); White Blood Count 8.5 K/mm3 (4.5-10.0)
[2022-07-15] MEDS: SODIUM CHLORIDE 0.9% IV 1,000 ML 125 ML IV CONT (06:57)
--- NOTE | 2022-07-15 07:02 | PM.IMHP ---
H&P: HPI History of Present Illness Date/Time: 07/15/22 07:02 Chief Complaint: Right flank pain Narrative: Pleasant 61-year-old female without prior significant history of urolithiasis until she presented to the ER approximately 5 days ago with right flankPain. Imaging demonstrated an obstructing 6 mm right proximal ureteral stone. She was initially scheduled for outpatient right ESWL but re-presented to the ER with intractable pain, nausea and vomiting. She has had no fevers chills or gross hematuria. She has no prior history of urolithiasis Review of Systems Constitutional: Constitutional: Denies chills, Denies fatigue, Denies fever(s) and Denies headache(s) Eyes: Eyes: Denies blurry vision ENT: Denies vertigo, Denies dizziness, Denies headache(s) and Denies sore throat Cardiovascular: Cardiovascular: Denies chest pain, Denies syncope, Denies lightheadedness, Denies palpitations, Denies dyspnea and Denies dyspnea on exertion Respiratory: Respiratory: Denies hemoptysis, Denies dyspnea and Denies dyspnea on exertion Gastrointestinal: Gastrointestinal: Denies melena, Denies bloating, Denies hematochezia, Denies change in bowel habits, Denies change in stool character, Denies constipation, Denies diarrhea and Denies vomiting Genitourinary: Genitourinary: Denies hematuria, Denies urinary frequency, Denies dysuria, Denies urinary hesitancy and Denies urinary urgency Integumentary/Breasts: Skin/Breast: Denies pruritus, Denies lesions and Denies rash Neurologic: Denies confusion, Denies vertigo, Denies dizziness, Denies syncope and Denies headache(s) Psychiatric: Psychiatric: Denies anxiety, Denies change in appetite and Denies confusion Endocrine: Endocrine: Denies fatigue and Denies palpitations PMFSH Past Medical History Medical History Allergic rhinitis Anemia Anxiety Arthritis Colon cancer screening Dysfunctional uterine bleeding GERD (gastroesophageal reflux disease) History of lung cancer HLD (hyperlipidemia) HLD (hyperlipidemia) IFG (impaired fasting glucose) IFG (impaired fasting glucose) Osteopenia Right knee injury UTI (urinary tract infection) Vitamin D deficiency Surgical History Surgical History H/O dilation and curettage H/O eye surgery x2 H/O tubal ligation H/O: hysterectomy Hx of tonsillectomy Status post lobectomy of lung Family History Family History Mother Hypertension Father Family history of coronary artery disease Family history of malignant neoplasm Social History Social History Smoking status: Never smoker Second hand tobacco smoke exposure: No Alcohol intake: never Alcohol use details: RARE Substance use: never Substance use type: does not use Lack of Transportation: No Lack of Food: Never True Current Housing: I Have Housing Concerned About Future Housing: No Difficulty Paying Gas/Electric Bills: No Difficulty Paying for Meds: No Currently Unemployed: No Education: Bachelor's Degree Difficulty w/ Childcare or Family Care: No Gender identity (if verbalized by the patient): Female Sexual Orientation (if Verbalized by the Patient): Straight or Heterosexual Spiritual care concerns: No Meds Home Medications and Allergies Home Medications Medication Instructions Recorded Confirmed Type ondansetron 4 mg disintegrating 4 mg PO Q6H PRN nausea and 07/11/22 07/15/22 Rx tablet vomiting #14 tabs tamsulosin 0.4 mg capsule (Flomax) 0.4 mg PO DAILY #7 caps 07/11/22 07/15/22 Rx tramadol 50 mg tablet 50 mg PO Q6H PRN pain #20 tabs 07/11/22 07/15/22 Rx ciprofloxacin HCl 500 mg tablet 500 mg PO BID 07/14/22 07/15/22 History montelukast 10 mg tablet 10 mg PO DAILY 07/15/22 07/15/22 History Allergies
[2022-07-15 07:04] LABS: Anion Gap 11 mmol/L (8-16); Blood Urea Nitrogen 18 mg/dL (7-17); Calcium 8.4 mg/dL (8.4-10.2); Carbon Dioxide 27 mmol/L (22-30); Chloride 101 mmol/L (98-107); Estimated CRCL calculation 68 ml/min; Estimated Glomerular Filt Rate > 60; Glucose 94 mg/dL (65-110); Potassium 3.4 mmol/L (3.4-5.0); Sodium 139 mmol/L (137-145)
--- NOTE | 2022-07-15 12:06 | WPDHPUPDATE1 ---
History and Physical Update Update Date/Time: 07/15/22 12:06 History and Physical has been reviewed, including an updated exam of the patient. There are NO changes in the patient's condition. Risks, benefits, and alternatives have been discussed and questions answered. Patient agrees to proceed with procedure.
[2022-07-15] MEDS: ONDANSETRON INJ 4 MG/2 ML VIAL IV PUSH (14:48)
--- NOTE | 2022-07-15 15:09 | PC.NURSE ---
Patient transferred to OR per stretcher 07/15/22 [id number]
--- NOTE | 2022-07-15 15:16 | WPDANESEPPF ---
Anes - Initial Pre Proc Eval Procedure: Operation Date: 07/15/22 16:30 Proposed Procedures p Cystoscopy, Right Ureteroscopy, Possible Right Retrograde Pyelogram, Possible Right Stone Extraction, Possible Right Stent Placement, Holmium Laser Procedure - Jose Oakley MD Date/Time: 07/15/22 15:16 Surgeon: Jose Oakley MD Pre Op Diagnosis: Obstructing Ureterolithiasis Patient Data Age: 61 Gender: F Height: 1.75 m Weight: 89 kg Last Vital Signs Temp 36.6 C 07/15/22 05:20 Pulse 75 07/15/22 05:20 Resp 16 07/15/22 05:20 BP 141/69 H 07/15/22 05:20 Pulse Ox 97 07/15/22 05:20 O2 Del Method Room Air 07/15/22 01:52 Allergies Allergy/AdvReac Type Severity Reaction Status Date / Time adhesive Allergy Unknown Blister Verified 07/15/22 01:25 benzoyl peroxide Allergy Unknown Rash Verified 07/15/22 01:25 latex Allergy Unknown Blister Verified 07/15/22 01:25 oxycodone AdvReac Unknown Nausea and Verified 07/15/22 01:25 Vomiting PLASTIC BANDS Allergy Mild BLISTERS Uncoded 07/15/22 01:25 Home Medications Medication Instructions Recorded Confirmed Type ondansetron 4 mg disintegrating 4 mg PO Q6H PRN nausea and 07/11/22 07/15/22 Rx tablet vomiting #14 tabs tamsulosin 0.4 mg capsule (Flomax) 0.4 mg PO DAILY #7 caps 07/11/22 07/15/22 Rx tramadol 50 mg tablet 50 mg PO Q6H PRN pain #20 tabs 07/11/22 07/15/22 Rx ciprofloxacin HCl 500 mg tablet 500 mg PO BID 07/14/22 07/15/22 History montelukast 10 mg tablet 10 mg PO DAILY 07/15/22 07/15/22 History Laboratory Tests 07/14/22 07/14/22 07/14/22 19:55 19:55 20:22 WBC 12.2 K/mm3 H K/mm3 (4.5-10.0) RBC 5.10 M/mm3 M/mm3 (4.2-5.4) Hgb 15.4 g/dL H g/dL (12.0-15.0) Hct 46.7 % % (37.0-47.0) MCV 91.6 fl fl (80-100) MCH 30.2 pg pg (26-34) MCHC 33.0 g/dl g/dl (32-36) RDW 12.8 % % (11.5-14.5) Plt Count 253 k/mm3 k/mm3 (150-375) MPV 10.6 fl H fl (7.4-10.4) Immature Gran % (Auto) 0.3 % % (0-0.5) Neut % (Auto) 83.1 % H % (45.5-73.1) Lymph % (Auto) 8.5 % L % (18.3-44.2) [place] % (Auto) 7.7 % % (2.6-8.5) Eos % (Auto) 0.0 % % (0-4.4) Baso % (Auto) 0.4 % % (0.2-1.2) Lymph # (Auto) 1.03 K/mm3 K/mm3 (0.9-3.2) [place] # (Auto) 0.9 K/mm3 H K/mm3 (0.1-0.6) Eos # (Auto) 0.0 K/mm3 K/mm3 (0-0.3) Baso # (Auto) 0.1 K/mm3 K/mm3 (0.0-0.1) Abs Immat Gran (auto) 0.04 K/mm3 H K/mm3 (0.00-0.031) Absolute Neuts (auto) 10.1 K/mm3 H K/mm3 (1.3-6.7) Absolute Nucleated RBC 0.0 K/mm3 K/mm3 (0.0-0.012) Nucleated RBC % 0.0 % % (0.0-0.2) Sodium 138 mmol/L mmol/L (137-145) Potassium 3.8 mmol/L mmol/L (3.4-5.0) Chloride 97 mmol/L L mmol/L (98-107) Carbon Dioxide 29 mmol/L mmol/L (22-30) Anion Gap 12 mmol/L mmol/L (8-16) BUN 18 mg/dL H mg/dL (7-17) Creatinine 0.80 mg/dL mg/dL (0.7-1.0) Estim Creat Clear Calc 75 ml/min ml/min Estimated GFR > 60 (59 - ) Glucose 125 mg/dL H mg/dL (65-110) Calcium 9.5 mg/dL mg/dL (8.4-10.2) Total Bilirubin 1.2 mg/dL mg/dL (0.2-1.3) AST 23 U/L U/L (14-36) ALT 19 U/L U/L (6-35) Alkaline Phosphatase 130 U/L H U/L (38-126) Total Protein 8.0 g/dL g/dL (6.3-8.2) Albumin 4.4 g/dL g/dL (3.5-5.1) Urine Color Yellow (Yellow) Urine Appearance Slightly cloudy (Clear) Urine pH 6.0 (5.0-9.0) Ur Specific [place] >= 1.030 (1.001-1.035) Urine Protein 1+ mg/dL H mg/dL (Negative) Urine Glucose (UA) Negative mg/dL mg/dL (Negative) Urine Ketones 4+ mg/dL H mg/dL (Negative) Ur Blood (Man) 3+ H (Negative
[2022-07-15] MEDS: LACTATED RINGERS 1,000 ML 30 ML IV CONT (15:20)
[2022-07-15] MEDS: SCOPOLAMINE 1.5 MG PATCH TRANSDERM (15:44)
[2022-07-15] MEDS: ceFAZolin 2 GM/D5W 50 ML 2 GM/50 ML BAG IVPB (16:06)
--- NOTE | 2022-07-15 16:51 | W.PM.PROC2 ---
Procedure Note - Detailed Date of Procedure 07/15/22 Pre-op Diagnosis Obstructing Ureterolithiasis Post-op Diagnosis Same Procedure Performed cystoscopy, right ureteroscopy with laser lithotripsy, right ureteral stent placement Surgeon Jose Oakley MD Anesthesia General Description of Procedure Patient is brought to the operative suite she was prepped draped in routine sterile fashion while in dorsal lithotomy position. Cystoscopy is undertaken with a 19 F rigid cystoscope. Bladder neck and urethra endoscopically normal. Bladder mucosa is normal there was no intravesical foreign body or neoplasm. A 0.035 glidewire was advanced in the right renal pelvis under fluoroscopy. Distal ureter was dilated with an 8 F 10 F dilator. Attempted to place a 12 F/ 14 F ureteral access sheath but the caliber of her ureter will not except that. Placed a 7.5 F flexible ureteral scope to the proximal ureteral stone. Using a 272 micron holmium laser fiber the stone was dusted into tiny little particles. The small fragments were too small to grasp with a disposable stone basket.. I did place a 4.8 F variable length ureteral stent which I will plan to leave for 1-2 weeks. Urine Output 300 Drains Yes Pathology None sent Condition Stable Disposition PACU
[2022-07-15] MEDS: KETOROLAC 15 MG/ML VIAL (*BKC) IV PUSH (17:25)
--- NOTE | 2022-07-15 19:07 | PC.NURSE ---
Patient return from OR per stretcher at 1810 07/15/22.
--- NOTE | 2022-07-16 13:41 | PM.DS ---
DS: Admitting Diagnosis Discharge Date 07/15/22 Admitting Diagnosis Right ureteral stone DS: Summary Hospital Course Hospital Course: patient had a several day history of a painful obstructing 6 mm right proximal ureteral stone that had required evaluation and management in the ER on a couple occasions. On this occasion she was admitted for hydration and analgesics in the following day underwent ureteroscopy with laser lithotripsy and stent placement. She was thereafter comfortable. That evening she was tolerating a diet decision was made to discharge her with plans to follow-up in 1-2 weeks for stent removal. Time Spent with Patient Time attestation: Total time spent providing and/or coordinating discharge services: Exam Const: General: no acute distress Resp: Effort & Inspection: normal respiratory effort GI: Inspection: non-distended GI Palp: No abdominal tenderness and No Guarding due to palpation present (GI) Auscultation: normal bowel sounds Discharge Plan Discharge Attending physician on discharge: Jose Oakley Consulting providers: Efrain Estrella ; Max Wagoner Discharging Clinician: Jose Oakley Patient Disposition: Home, Self-Care Activity: other - see discharge instructions Diet: other - see discharge instructions Discharge Instructions: 1) Activity: no driving or important decisions x24 hours. 2) Diet: resume your normal, pre-admission diet. 3) Follow-up: 7-14 days for stent removal / call for appointment ([phone]). Patient Instructions: Antibiotic Form Stand Alone Forms: General Discharge Information Follow-up/Referrals: Jose Oakley MD [Physician] - Discharge Medications: New ciprofloxacin HCl 500 mg tablet 500 mg PO Q12H Qty: 6 0RF tramadol 50 mg tablet 50 mg PO Q6H PRN (Reason: pain) Qty: 20 0RF Continued montelukast 10 mg tablet 10 mg PO DAILY ondansetron 4 mg tablet,disintegrating 4 mg PO Q6H PRN (Reason: nausea and vomiting) Qty: 14 0RF tamsulosin [Flomax] 0.4 mg capsule 0.4 mg PO DAILY Qty: 7 0RF tramadol 50 mg tablet 50 mg PO Q6H PRN (Reason: pain) Qty: 20 0RF ciprofloxacin HCl 500 mg tablet 500 mg PO BID Date of admission: 07/14/22 22:22 Primary Care Provider: Bowen Esposito Admitting Provider: Jose Oakley Attending physician on admission: Jose Oakley Condition: Stable
== END 2022-07-15 21:37 | disposition home or self-care (01) ==
LOC: ANHED 22:27 → ANH2MED 07-15 00:58
PROVIDERS: Emergency Medicine; Admitting Provider Urology; Emergency Provider Emergency Medicine; PCP Family Medicine; Visit Provider Urology
PROC: (CPT 52352; principal; 2022-07-15 16:30)
DX: N20.1 Calculus of ureter (principal); D64.9 Anemia, unspecified; F41.9 Anxiety disorder, unspecified; K21.9 Gastro-esophageal reflux disease without esophagitis; E78.5 Hyperlipidemia, unspecified; R73.01 Impaired fasting glucose; E66.3 Overweight; Z68.29 Body mass index [BMI] 29.0-29.9, adult; Z79.891 Long term (current) use of opiate analgesic; Z79.899 Other long term (current) drug therapy
CPT/HCPCS: 52325; 52332; 36415; 80048; 80053; 81001; 85025; 96361; 96374; 96375; 96376; 99285; A9270; C1769; C1894; C2617; G0378; J0690; J1170; J1885; J2250; J2270; J2405; J2704; J7030; J7120

== ENCOUNTER 2022-09-25 12:44 | Outpatient (CLI) | payer BC, SELFPAY ==
[2022-09-25 13:52] LABS: Alanine Aminotransferase 24 U/L (6-35); Albumin Level 4.2 g/dL (3.5-5.1); Alkaline Phosphatase 106 U/L (38-126); Aspartate Amino Transferase 24 U/L (14-36); Bilirubin,Total 0.7 mg/dL (0.2-1.3)
== END 2022-09-25 12:45 | disposition home or self-care (01) ==
LOC: ANHLAB 12:47
PROVIDERS: PCP Family Medicine; Visit Provider Podiatrist Foot & Ankle Surgery
DX: B35.1 Tinea unguium (principal)
CPT/HCPCS: 36415; 80076

== ENCOUNTER → 2023-03-16 10:31 | Outpatient (CLI) | payer BC, SELFPAY ==
--- NOTE | ~2023-03-16 | DEXA_ITS ---
Bone Density Report Name: NILES ANTONIO Age: 62 Sex: Female Ethnicity: White Date of : 1960 Indication: osteopenia; parental hip fracture; height loss; hysterectomy; postmenopausal Referring Provider: Alethea, Savanah Study: Bone densitometry was performed. Exam Date: March 16, 2023 Accession number: [id number] Bone Density: Region BMD T-score Z-score Classification AP Spine (L1-L4) 0.933 -1.0 0.6 Normal Femoral Neck (Left) 0.566 -2.5 -1.1 Osteoporosis Total Hip (Left) 0.711 -1.9 -0.7 Osteopenia Femoral Neck (Right) 0.583 -2.4 -1.0 Osteopenia Total Hip (Right) 0.731 -1.7 -0.6 Osteopenia Total Hip Mean 0.721 -1.8 -0.7 Osteopenia World Health Organization criteria for BMD impression classify patients as: Normal (T-score at or above -1.0), Osteopenia (T-score between -1.0 and -2.5), or Osteoporosis (T-score at or below -2.5). 10-year Fracture Risk: FRAX not reported because: Some T-score for Spine Total or Hip Total or Femoral Neck at or below -2.5 Previous Exams: Region Exam Age BMD T-score BMD Change BMD Change Date g/cm2 vs Baseline vs Previous AP Spine(L1-L4) 03/16/2023 62 0.933 -1.0 -0.016 -0.007 02/27/2021 60 0.940 -1.0 -0.008 0.020 08/23/2018 58 0.920 -1.2 -0.028* -0.013 07/17/2016 55 0.934 -1.0 -0.015 -0.007 07/13/2014 53 0.941 -1.0 -0.008 -0.038* 06/10/2012 51 0.979 -0.6 0.030* 0.003 11/12/2010 50 0.976 -0.6 0.027* 0.027* 10/13/2009 49 0.949 -0.9 Total Hip(Left) 03/16/2023 62 0.711 -1.9 -0.073* -0.046* 02/27/2021 60 0.758 -1.5 -0.026 0.002 08/23/2018 58 0.756 -1.5 -0.028* -0.034* 07/17/2016 55 0.790 -1.2 0.006 0.004 07/13/2014 53 0.787 -1.3 0.002 -0.016 06/10/2012 51 0.802 -1.1 0.018 0.018 11/12/2010 50 0.784 -1.3 Total Hip(Right) 03/16/2023 62 0.731 -1.7 -0.071* -0.046* 02/27/2021 60 0.777 -1.4 -0.025 -0.004 08/23/2018 58 0.780 -1.3 -0.021 0.009 07/17/2016 55 0.771 -1.4 -0.030* -0.005 07/13/2014 53 0.776 -1.4 -0.026 -0.007 06/10/2012 51 0.783 -1.3 -0.018 -0.018 11/12/2010 50 0.801 -1.2 *Denotes significance at 95% confidence level, LSC for AP Spine = 0.022 g/cm2, LSC for Total Hip = 0.027 g/cm2 Cli
== END ==
PROVIDERS: PCP Family Medicine; Visit Provider Nurse Practitioner
DX: M85.88 Other specified disorders of bone density and structure, other site (principal); M81.0 Age-related osteoporosis without current pathological fracture; M85.852 Other specified disorders of bone density and structure, left thigh; M85.851 Other specified disorders of bone density and structure, right thigh
CPT/HCPCS: 77080

== ENCOUNTER 2024-01-24 08:46 | Emergency (ER) | payer BC, SELFPAY ==
--- NOTE | 2024-01-24 08:52 | ED.SKABFB ---
HPI - Skin/Abscess/Foreign Bdy General Chief complaint: Skin/Abscess/Foreign Body Stated complaint: lt fraga skin infection Time Seen by Provider: 01/24/24 08:50 Source: patient Mode of arrival: ambulatory Limitations: no limitations History of Present Illness HPI narrative: Marjan is a 63-year-old female patient presenting to the clinic today with complaints of possible skin infection to the left fraga. She reports she injured her left lower leg on January 16 when she slipped on a 0 turned mower and cut her lower anterior leg. States over the last few days it has been swelling and house become red and warm to touch. The area is very tender. She denies any fever, chills, or body aches. She denies being diabetic. Tetanus shot is [id number] of 2018 Related Data Home Medications Medication Instructions Recorded Confirmed Lactobacillus rhamnosus GG 20 1 cell PO DAILY 05/24/23 01/24/24 billion cell capsule (Probiotic Digestive Care) biotin 10,000 mcg capsule 10,000 mcg PO DAILY 05/24/23 01/24/24 calcium carbonate (Tums) 400 mg PO BID 05/24/23 01/24/24 cholecalciferol (vitamin D3) 50 50 mcg PO DAILY 05/24/23 01/24/24 mcg (2,000 unit) capsule fluticasone propionate 50 1 spray intranasal DAILY 05/24/23 01/24/24 mcg/actuation nasal spray,suspension (Flonase Allergy Relief) mecobalamin (vitamin B12) 5,000 5,000 mcg PO DAILY 05/24/23 01/24/24 mcg chewable tablet Allergies Allergy/AdvReac Type Severity Reaction Status Date / Time adhesive Allergy Unknown Blister Verified 01/24/24 09:11 benzoyl peroxide Allergy Unknown Rash Verified 01/24/24 09:11 latex Allergy Unknown Blister Verified 01/24/24 09:11 oxycodone AdvReac Unknown Nausea and Verified 01/24/24 09:11 Vomiting PLASTIC BANDS Allergy Mild BLISTERS Uncoded 01/24/24 09:11 Review of Systems Review of Systems: Pertinent positives per HPI. Patient denies any fever, chills, rash, headache, visual changes, dizziness, cough, runny nose, sore throat, shortness of breath, chest pain, palpitations, nausea, vomiting, diarrhea, constipation, abdominal pain, or any urinary issues. PMFSH Past Medical History Medical History Allergic rhinitis Anemia Anxiety Arthritis Colon cancer screening Dysfunctional uterine bleeding GERD (gastroesophageal reflux disease) History of lung cancer HLD (hyperlipidemia) HLD (hyperlipidemia) IFG (impaired fasting glucose) IFG (impaired fasting glucose) Osteopenia Osteoporosis Right knee injury UTI (urinary tract infection) Vitamin D deficiency Surgical History Surgical History H/O dilation and curettage H/O eye surgery x2 H/O tubal ligation H/O: hysterectomy Hx of tonsillectomy Status post lobectomy of lung Family History Family History Mother Hypertension Father Family history of coronary artery disease Family history of malignant neoplasm Social History Social History Social History: Caffeine-tea Smoking status: Never smoker Second hand tobacco smoke exposure: No Alcohol intake: current Alcohol use details: 1-2 glasses of wine monthly Substance use: never Substance use type: does not use Lack of Transportation: No Lack of Food: Never True Current Housing: I Have Housing Concerned About Future Housing: No Difficulty Paying Gas/Electric Bills: No Difficulty Paying for Meds: No Currently Unemployed: No Education: Bachelor's Degree Difficulty w/ Childcare or Family Care: No Living arrangements: with family Occupation/Education: occupation Gender identity (if verbalized by the patient): Female Sexual Orientation (if Verbalized by the Patient): Straight or Heterosexual Spiritual care concerns: No Comments At the time of my sig
[2024-01-24 09:00] VITALS: BP 132/79; PULSE 75; RESP 16; TEMP 36.4; O2SAT 100
== END 2024-01-24 09:35 | disposition home or self-care (01) ==
PROVIDERS: Emergency Provider Nurse Practitioner Family; PCP Family Medicine
DX: S81.802A Unspecified open wound, left lower leg, initial encounter (principal); L08.9 Local infection of the skin and subcutaneous tissue, unspecified; W28.XXXA Contact with powered lawn mower, initial encounter; M19.90 Unspecified osteoarthritis, unspecified site; K21.9 Gastro-esophageal reflux disease without esophagitis; E78.5 Hyperlipidemia, unspecified; R73.01 Impaired fasting glucose; M85.80 Other specified disorders of bone density and structure, unspecified site; M81.0 Age-related osteoporosis without current pathological fracture; E55.9 Vitamin D deficiency, unspecified; Z85.118 Personal history of other malignant neoplasm of bronchus and lung; Z90.2 Acquired absence of lung [part of]
CPT/HCPCS: 99213; G0463

== ENCOUNTER 2024-06-28 15:49 | Outpatient (CLI) | payer BC, SELFPAY ==
--- NOTE | ~2024-06-28 | XR_ITS ---
XR chest 2V Ordering provider: Bowen Esposito MD History: 63 years Female with . R05.9 - Cough, unspecified . Comparison: None. FINDINGS: MEDIASTINUM: The cardiac silhouette is not enlarged. Prominent right hilum is seen which may indicate a mass or lymphadenopathy. Slightly prominent left hilum. LUNGS: No effusions or pneumothorax. Opacification the right lower lobe area suggestive of atelectasi s versus pneumonia. OTHER: No free air under the diaphragm. IMPRESSION: Right lower lobe atelectasis versus pneumonia. Right prominent hilum which may indicate lymphadenopathy or a mass. Further evaluation advised. Reviewed, dictated and finalized at location A. IMPRESSION: Right lower lobe atelectasis versus pneumonia. Right prominent hilum which may indicate lymphadenopathy or a mass. Further francisca luation advised.
[2024-06-28 16:59] LABS: Influenza A QL RT-PCR Negative (Negative); Influenza B QL RT-PCR Negative (Negative); RSV RNA, RT-PCR Negative (Negative); SARS-CoV-2 RNA PCR Negative (Negative)
== END 2024-06-28 15:50 | disposition home or self-care (01) ==
LOC: ANHLAB 15:50
PROVIDERS: PCP Family Medicine; Visit Provider Family Medicine
DX: R05.9 Cough, unspecified (principal); R50.9 Fever, unspecified; R91.8 Other nonspecific abnormal finding of lung field
CPT/HCPCS: 71046; 87637

== ENCOUNTER 2025-02-14 11:18 | Outpatient (CLI) | payer MEDICARE, SELFPAY ==
--- NOTE | ~2025-02-14 | XR_ITS ---
Right Knee Technique: AP, lateral, and sunrise views were obtained. Clinical History: Pain Findings: No fracture or dislocation is seen. Osseous alignment is anatomic. There is moderate degene rative change of the patellofemoral compartment. Soft tissues are unremarkable. No joint effusion is seen. Impression: Moderate patellofemoral compartment degenerative change. Reviewed, dictated and finalized at location . Impression: Moderate patellofemoral compartment degenerative change.
== END 2025-02-14 11:19 | disposition home or self-care (01) ==
LOC: MICIMG 11:20
PROVIDERS: PCP Family Medicine; Visit Provider Family Medicine
DX: M17.11 Unilateral primary osteoarthritis, right knee (principal)
CPT/HCPCS: 73562

== ENCOUNTER 2025-05-20 14:54 | Outpatient (CLI) | payer MEDICARE, SELFPAY ==
--- NOTE | ~2025-05-20 | DEXA_ITS ---
Bone Density Report Name: NILES ANTONIO Age: 64 Sex: Female Ethnicity: White Date of : 1960 Indication: osteopenia; parental hip fracture; cancer; hysterectomy; Referring Provider: ROMÁN JONES Study: Bone densitometry was performed. Exam Date: May 20, 2025 Accession number: [id number] Bone Density: Region BMD T-score Z-score Classification AP Spine(L1-L4) 0.944 -0.9 0.9 Normal Femoral Neck (Left) 0.561 -2.6 -1.0 Osteoporosis Total Hip (Left) 0.682 -2.1 -0.9 Osteopenia Femoral Neck (Right) 0.587 -2.4 -0.8 Osteopenia Total Hip (Right) 0.711 -1.9 -0.6 Osteopenia Total Hip Mean 0.697 -2.0 -0.8 Osteopenia World Health Organization criteria for BMD impression classify patients as: Normal (T-score at or above -1.0), Osteopenia (T-score between -1.0 and -2.5), or Osteoporosis (T-score at or below -2.5). 10-year Fracture Risk: FRAX not reported because: Some T-score for Spine Total or Hip Total or Femoral Neck at or below -2.5 Previous Exams: -- Region Exam Age BMD T-score BMD Change BMD Change Date g/cm2 vs Baseline vs Previous -- AP Spine (L1-L4) 05/20/2025 64 0.944 -0.9 -0.4% 1.2% 03/16/2023 62 0.933 -1.0 -1.6% -0.8% 02/27/2021 60 0.940 -1.0 -0.9% 2.2% 08/23/2018 58 0.920 -1.2 -3.0%* -1.4% 07/17/2016 55 0.934 -1.0 -1.6% -0.7% 07/13/2014 53 0.941 -1.0 -0.8% -3.9%* 06/10/2012 51 0.979 -0.6 3.2%* 0.3% 11/12/2010 50 0.976 -0.6 2.8%* 2.8%* 10/13/2009 49 0.949 -0.9 Total Hip(Left) 05/20/2025 64 0.682 -2.1 -13.0%* -4.1%* 03/16/2023 62 0.711 -1.9 -9.3%* -6.1%* 02/27/2021 60 0.758 -1.5 -3.4% 0.3% 08/23/2018 58 0.756 -1.5 -3.6%* -4.3%* 07/17/2016 55 0.790 -1.2 0.8% 0.5% 07/13/2014 53 0.787 -1.3 0.3% -2.0% 06/10/2012 51 0.802 -1.1 2.3% 2.3% 11/12/2010 50 0.784 -1.3 Total Hip(Right) 05/20/2025 64 0.711 -1.9 -11.3%* -2.7% 03/16/2023 62 0.731 -1.7 -8.8%* -5.9%* 02/27/2021 60 0.777 -1.4 -3.1% -0.5% 08/23/2018 58 0.780 -1.3 -2.6% 1.2% 07/17/2016 55 0.771 -1.4 -3.8%* -0.6% 07/13/2014 53 0.776 -1.4 -3.2% -0.9% 06/10/2012 51 0.783 -1.3 -2.3% -2.3% 11/12/2010 50 0.801 -1.2 -- *Denotes significance at 95% confidence level, LSC for AP Spine = 0.022 g/cm2, LSC for Total Hip = 0.027 g/cm2 Clinical Information Provided by Patient: Parent has had a hip fracture Has used the following medications: Actonel (i.e. risedronate), Boniva (i.e. ibandronate), Fosamax (i.e. alendronate), Vitamin D, Calcium Has the following medical conditions: Cancer, Hysterectomy Patient maximum height was 69.5 Menopause Age: 45 No regular weight bearing exercise Onset of menses at age 15 Number of children 2 Impression: The patient has osteoporosis, based on the Left Femoral Neck T-score. The patient has risk factors, including: parental hip fracture. The BMD for the Total Hip(Left) decreased, changing by -4.1% since the last DXA exam. Discussion: INCREASED RISK OF FRACTURE. BONE DENSITY IS UNDESIRABLY LOW AT ONE OR MORE SKELETAL SITES, CONSISTENT WITH POSTMENOPAUSAL OSTEOPOROSIS. This patient's lowest T-score meets the World Health Organization's (WHO) criteria for osteoporosis at one or more sites (T-score -2.5 or below). In untreated patients, the risk of osteoporotic fracture increases approximately two-fold for each 1.0 SD decrease in T-score. Low bone density is not the only risk factor for fracture; also consider factors such as patient's age, frailty or poor health, risk of falling, risk of injury, previous osteoporotic fracture, family history of osteoporosis, cigarette smoking, low body weight, etc. Not everyone with low bone mineral density has osteoporosis; osteomalacia and other metabolic bone disorders should also be considered. Patients who have osteoporosis should be evaluated for specific diseases and conditions (secondary causes) that may cause or contribute to bone loss. The [place] [employer]ocrinologists (AACE) and National Osteoporosis Foundation (NOF) recommend pharmacologic intervention for all postmenopausal women whose T-score is in this range. The patient should follow a healthful lifestyle (good nutrition with adequate calcium and vitamin D, and appropriate weight-bearing exercise). Follow-Up: Consider a repeat BMD and Vertebral Fracture Assessment (VFA) exam in 2 years or sooner if medically necessary, to reassess this patient's status. Reported by: DENIS on 05/20/2025 3:29:00 PM. Reviewed, dictated and finalized at location A.
== END 2025-05-20 14:55 | disposition home or self-care (01) ==
LOC: MICIMG 14:56
PROVIDERS: PCP Family Medicine; Visit Provider Obstetrics & Gynecology Gynecology
DX: Z78.0 Asymptomatic menopausal state (principal); M81.0 Age-related osteoporosis without current pathological fracture; M85.852 Other specified disorders of bone density and structure, left thigh; M85.851 Other specified disorders of bone density and structure, right thigh
CPT/HCPCS: 77080

== ENCOUNTER 2025-07-16 16:38 | Outpatient (CLI) | payer MEDICARE, SELFPAY ==
[2025-07-16 17:42] LABS: Influenza A QL RT-PCR Negative (Negative); Influenza B QL RT-PCR Negative (Negative); RSV RNA, RT-PCR Negative (Negative); SARS-CoV-2 RNA PCR Negative (Negative)
--- OUTSIDE RECORDS SUMMARY | 2025-07-17 03:52 | XMS_ITS | Patient Health Record ---
Author Organization [facility] Address [address] [place], [place] [id number] Care Team Providers Care Insurance Adjustor Name Role Phone JOSE Pressley Unavailable [phone] Bowen Esposito Unavailable Unavailable Allergies Allergen (clinical drug ingredient) Drug/Non Drug Allergy documented on EMR Reaction Allergy Type Onset Date Status Latex Latex Unknown Allergy 06/07/2012 active Reason For Referral No Information Medications Medication SIG (Take, Route, Frequency, Duration) Notes Start Date End Date Status naftifine hydrochloride 0.01 MG/MG Topical Gel [Naftin] CUTANEOUS naftifine hydrochloride 0.01 MG/MG Topical Gel [Naftin]Original Medicationnaftifine hydrochloride 0.01 MG/MG Topical Gel [Naftin] *Reorder from [facility] for eRx and Interaction Alerts* 08/24/2012 Active loteprednol etabonate 5 MG/ML Ophthalmic Suspension [Lotemax] loteprednol etabonate 5 MG/ML Ophthalmic Suspension [Lotemax]Original Medicationloteprednol etabonate 5 MG/ML Ophthalmic Suspension [Lotemax] *Reorder from [facility] for eRx and Interaction Alerts* 08/24/2012 Active terbinafine 250 MG Oral Tablet ORAL terbinafine 250 MG Oral TabletOriginal Medicationterbinafine 250 MG Oral Tablet *Reorder from [facility] for eRx and Interaction Alerts* 09/27/2022 Active risedronate sodium 5 MG Oral Tablet [Actonel] ORAL risedronate sodium 5 MG Oral Tablet [Actonel]Original Medicationrisedronate sodium 5 MG Oral Tablet [Actonel] *Reorder from [facility] for eRx and Interaction Alerts* 08/24/2012 Active celecoxib 200 MG Oral Capsule [Celebrex] ORAL celecoxib 200 MG Oral Capsule [Celebrex]Original Medicationcelecoxib 200 MG Oral Capsule [Celebrex] *Reorder from [facility] for eRx and Interaction Alerts* 08/24/2012 Active urea 400 MG/ML Topical Cream CUTANEOUS urea 400 MG/ML Topical CreamOriginal Medicationurea 400 MG/ML Topical Cream *Reorder from [facility] [facility] for eRx and Interaction Alerts* 08/24/2012 Active Social History Social History Additional Details Category Social Info Options Details Migrated Social History Migrated Social History Alcohol intake : , Smoking Status : Never smoked , History of tobacco use : Plan Of Treatment No Information Insurance Providers Payer Name Payer Address Payer Phone Subscriber Number Group Number Insured Name Patient Relationship to Insured Coverage Start Date Coverage End Date [facility] ([facility] ATTN CLAIMS [address] [place] [address] [id number] NILES ZAVALETA Self - patient is the insured
== END 2025-07-16 16:39 | disposition home or self-care (01) ==
LOC: ANHLAB 16:42
PROVIDERS: PCP Family Medicine; Visit Provider Physician Assistant
DX: J02.9 Acute pharyngitis, unspecified (principal); Z20.822 Contact with and (suspected) exposure to COVID-19
CPT/HCPCS: 87637